=== PATIENT | female | born 1995 | race Caucasian/White ===

== ENCOUNTER 2016-10-18 06:35 | Emergency (ER) | payer OTHER ==
[~2016-10-18] VITALS: Ht 154.9 cm; Wt 60.1 kg
[2016-10-18] MEDS ORDERED: KEFLEX500 MG PO (07:51)
[2016-10-18 08:06] VITALS: BP 120/80
== END 2016-10-18 08:06 | disposition home or self-care (01) ==
LOC: EME 06:35
DX: J02.0 Streptococcal pharyngitis (principal)
CPT/HCPCS: 87651 90; 99281; 99284